=== PATIENT | male | born 1960 | race Caucasian/White ===

== ENCOUNTER 2016-12-04 07:46 | Inpatient (IN) | payer OTHER ==
[2016-12-07] MEDS ORDERED: ISOPTIN DPS120 MG PO (10:04)
[2016-12-07] MEDS ORDERED: LISINOPRIL10 MG PO (10:04)
[2016-12-07] MEDS ORDERED: PHENERGAN DPS25 MG PO (10:05)
[2016-12-07] MEDS ORDERED: TYLENOL DPS325 MG PO (10:05)
[2016-12-07] MEDS ORDERED: CELEBREX100 MG PO (10:05)
[2016-12-07] MEDS ORDERED: PRILOSEC DPS20 MG PO (10:05)
[2016-12-07] MEDS ORDERED: CARAFATE DPS1 GM PO (10:05)
[2016-12-07] MEDS ORDERED: COLACE-DPS100 MG PO (10:06)
[2016-12-07] MEDS ORDERED: ULTRAM DPS50 MG PO (10:06)
== END 2016-12-06 11:08 | disposition home or self-care (01) | DRG 377 ==
DX: K28.4 Chronic or unspecified gastrojejunal ulcer with hemorrhage (principal); R57.1 Hypovolemic shock; I44.2 Atrioventricular block, complete; D62 Acute posthemorrhagic anemia; I10 Essential (primary) hypertension; F17.220 Nicotine dependence, chewing tobacco, uncomplicated; K20.9 Esophagitis, unspecified; F41.9 Anxiety disorder, unspecified; G47.33 Obstructive sleep apnea (adult) (pediatric); K21.9 Gastro-esophageal reflux disease without esophagitis; Z79.82 Long term (current) use of aspirin